=== PATIENT | male | born 1975 | race Caucasian/White ===

== ENCOUNTER 2023-12-02 15:18 | Inpatient (IN) | payer OTHER ==
[2023-12-02] MEDS ORDERED: Pantoprazole 40 MG VIAL ONE (16:29)
[2023-12-02] MEDS ORDERED: Octreotide Acetate 500 MCG/ML VIAL ONE ×3 (16:29→17:37)
[2023-12-02] MEDS ORDERED: Ondansetron PF 4 MG/2 ML Vial ONE (16:29)
[2023-12-02] MEDS ORDERED: Prochlorperazine 10 MG/2 ML VIAL ONE (16:40)
[2023-12-02 17:08] LABS: #Basophils 0.05 10x3/uL (0.0-0.2); #Eosinphils Less than 0.03 10x3/uL (0.0-0.7); %Basophils 0.4 % (0.0-1.0); %Eosinophils 0.2 % (0.0-10.0); %Monocytes 6.9 % (0.0-10.0); %Neutrophils 77.8 % (42.0-75.0); Hematocrit 36.3 % (42.0-52.0); Hemoglobin 12.1 g/dL (14.0-18.0); Mean Corpuscular HGB CONC 33.3 g/dL (32.0-36.0); Mean Corpuscular Hemoglobin 29.8 pg (27.0-31.0); Mean Corpuscular Volume 89.4 fL (78.0-98.0); Mean Platelet Volume 10.7 fL (7.4-10.4); Platelet Count 214 10x3/uL (130-400); Red Blood Cell (RBC) Count 4.06 mill/uL (4.70-6.10)
[2023-12-02 17:22] LABS: INR-International Normal Ratio 1.3; PTT 26.6 sec (22.9-36.1); Prothrombin Time 15.8 sec (12.0-14.7)
[2023-12-02 17:27] LABS: ALT (SGPT) 23 U/L (8-55); AST (SGOT) 22 U/L (5-34); Albumin 3.4 g/dL (3.5-5.0); Alkaline Phosphatase 50 U/L (40-110); Anion Gap 17 mmol/L (10-20); BUN (Urea Nitrogen) 22 mg/dL (8.9-20.6); Bilirubin, Total 0.9 mg/dL (0.2-1.2); Calc. Creatinine Clearance 0 mL/min (70-130); Calcium 8.6 mg/dL (7.8-10.44); Carbon Dioxide 20 mmol/L (22-29); Chloride 103 mmol/L (98-107); Estimated GFR 99; Globulin 4.1 g/dL (2.4-3.5); Glucose 346 mg/dL (70-105); Lipase 18 U/L (8-78); Potassium 4.5 mmol/L (3.5-5.1); Protein, Total 7.5 g/dL (6.0-8.3); Sodium 135 mmol/L (136-145)
[2023-12-02 17:28] LABS: Troponin I Less than 0.010 ng/mL (< 0.028)
[2023-12-02] MEDS ORDERED: Acetaminophen 325 MG TAB PO PRN (17:52)
[2023-12-02] MEDS ORDERED: Pantoprazole 80 MG in Sodium Chloride 0.9% 100 ML IVP SCH (18:00)
[2023-12-02] MEDS ORDERED: cefTRIAXone\\ROCEPHIN 1 GM in Sodium Chloride 0.9% 100 ML IVPB SCH (18:00)
[2023-12-02] MEDS ORDERED: Octreotide Acetate 1,250 MCG in Sodium Chloride 0.9% 250 ML 250 ML IVPB SCH (18:00)
[2023-12-02] MEDS ORDERED: Dextrose 5% in Water 1,000 ML IV PRN (18:06)
[2023-12-02] MEDS ORDERED: Glucagon 1 MG/ML KIT IM PRN (18:06)
[2023-12-02] MEDS ORDERED: Dextrose 50% Abboject 50 ML SYRINGE SLOW IVP PRN (18:06)
[2023-12-02 18:28] LABS: Bacteria/HPF None Seen HPF (None Seen); Bilirubin Negative (Negative); Blood, Urine Negative (Negative); CAUTI Indications for Culture Immunosuppressed; Clarity Clear (Clear); Glucose, Urine (Dipstick) Greater than 1000 mg/dL (Negative); Ketone, Urine 40 mg/dL (Negative); Leukocyte Negative Leu/uL (Negative); Nitrite Negative (Negative); Protein, Urine (Dipstick) Negative (Neg-Trace); RBC/HPF 0-3 HPF (0-3); Specific Gravity, Urine 1.025 (1.002-1.036); Squamous Epithelial None Seen HPF (0-3); Urobilinogen Normal mg/dL (Less than 2); WBC/HPF 0-3 HPF (0-3); pH, Urine 6.5 (5.0-9.0)
[2023-12-02 18:30] LABS: Urine Culture Reflex Yes Yes
[2023-12-02] MEDS ORDERED: SUCCINYLCHOLINE/SOD CL,ISO/PF 200 MG/10 ML SYRINGE FS ONE (18:42)
[2023-12-02] MEDS ORDERED: PROPOFOL 60 ML ONE (18:42)
[2023-12-02] MEDS ORDERED: Etomidate 40 MG (20 mL) VIAL ONE (18:46)
[2023-12-02] MEDS ORDERED: Midazolam HCl 2 mg/2 ml Vial ONE (18:46)
[2023-12-02] MEDS ORDERED: SUGAMMADEX SODIUM 200 MG/2 ML VIAL ONE (19:06)
[2023-12-02 21:19] VITALS: BMI 49.9
[2023-12-02] MEDS: Pantoprazole 40 MG VIAL IVP SCH (23:29)
[2023-12-02] MEDS: Sodium Chloride 0.9% 1,000 ML IV SCH (23:29)
[2023-12-02] MEDS: cefTRIAXone\\ROCEPHIN 2 GM in Sodium Chloride 0.9% 100 ML IVPB SCH (23:50)
[2023-12-02] MEDS: Insulin Regular, Human 100 UNIT/ML 10 ML VIAL SC PRN (23:51)
[2023-12-03] MEDS ORDERED: Glucagon 1 MG/ML KIT IM PRN (06:09)
[2023-12-03] MEDS ORDERED: Dextrose 50% Abboject 50 ML SYRINGE SLOW IVP PRN (06:09)
[2023-12-03] MEDS ORDERED: Dextrose 5% in Water 1,000 ML IV PRN (06:09)
[2023-12-03] MEDS: HumaLOG 300 UNITS/3 ML VIAL SC PRN (06:18)
[2023-12-03 09:14] LABS: #Basophils Less than 0.03 10x3/uL (0.0-0.2); %Basophils 0.3 % (0.0-1.0); %Eosinophils 1.3 % (0.0-10.0); %Lymphocytes 24.9 % (21.0-51.0); %Monocytes 12.9 % (0.0-10.0); %Neutrophils 60.2 % (42.0-75.0); Hematocrit 27.5 % (42.0-52.0); Hemoglobin 9.2 g/dL (14.0-18.0); Mean Corpuscular HGB CONC 33.5 g/dL (32.0-36.0); Mean Corpuscular Hemoglobin 30.1 pg (27.0-31.0); Mean Corpuscular Volume 89.9 fL (78.0-98.0); Platelet Count 128 10x3/uL (130-400); RBC Distribution Width 13.2 % (11.5-14.5); Red Blood Cell (RBC) Count 3.06 mill/uL (4.70-6.10)
[2023-12-03 09:28] LABS: INR-International Normal Ratio 1.3; Prothrombin Time 16.4 sec (12.0-14.7)
[2023-12-03 09:32] LABS: ALT (SGPT) 20 U/L (8-55); AST (SGOT) 25 U/L (5-34); Albumin 2.8 g/dL (3.5-5.0); Alkaline Phosphatase 41 U/L (40-110); Anion Gap 13 mmol/L (10-20); BUN (Urea Nitrogen) 17 mg/dL (8.9-20.6); Bilirubin, Total 0.4 mg/dL (0.2-1.2); Calc. Creatinine Clearance 253 mL/min (70-130); Calcium 7.8 mg/dL (7.8-10.44); Carbon Dioxide 18 mmol/L (22-29); Chloride 107 mmol/L (98-107); Estimated GFR 108; Globulin 3.4 g/dL (2.4-3.5); Glucose 382 mg/dL (70-105); Potassium 3.8 mmol/L (3.5-5.1); Protein, Total 6.2 g/dL (6.0-8.3); Sodium 134 mmol/L (136-145)
[2023-12-03] MEDS: Pantoprazole 40 MG VIAL IVP SCH (09:35)
[2023-12-03] MEDS: glipiZIDE 10 MG TAB PO SCH ×2 (11:38→20:47)
[2023-12-03] MEDS: metFORMIN 500 MG TAB PO SCH ×2 (11:38→20:47)
[2023-12-03 14:10] LABS: Hematocrit 30.4 % (42.0-52.0); Hemoglobin 9.4 g/dL (14.0-18.0)
[2023-12-03] MEDS: Lactated Ringer's 1,000 ML IV SCH (17:55)
[2023-12-03] MEDS: Insulin Glargine 30 UNITS/0.3 ML VIAL SC SCH (20:47)
[2023-12-03] MEDS: Atorvastatin Calcium 20 MG TAB PO SCH (20:48)
[2023-12-04] MEDS: Ondansetron PF 4 MG/2 ML Vial IVP PRN (00:58)
[2023-12-04 02:12] LABS: Hematocrit 23.6 % (42.0-52.0); Hemoglobin 7.5 g/dL (14.0-18.0); Mean Corpuscular HGB CONC 31.8 g/dL (32.0-36.0); Mean Corpuscular Hemoglobin 29.8 pg (27.0-31.0); Mean Corpuscular Volume 93.7 fL (78.0-98.0); Mean Platelet Volume 10.4 fL (7.4-10.4); Platelet Count 194 10x3/uL (130-400); RBC Distribution Width 13.5 % (11.5-14.5); Red Blood Cell (RBC) Count 2.52 mill/uL (4.70-6.10)
[2023-12-04 02:37] LABS: Anisocytosis SLIGHT = 6-15 cells HPF (0-5); Band 2 % (5-11); Eosinophils 1 % (0-10); Lymphocytes 14 % (21-51); Macrocytosis SLIGHT = 6-15 cells HPF (0-5); Monocytes 4 % (0-10); Neutrophil 79 % (42-75); Ovalocytes SLIGHT = 2-5 cells HPF (0-1); Platelet Adequacy Comment Platelets Normal; Polychromasia MODERATE = 3-4 cells HPF (0-2)
[2023-12-04] MEDS: Ondansetron PF 4 MG/2 ML Vial IVP SCH (02:52)
[2023-12-04 03:36] VITALS: BP 104/51
[2023-12-04] MEDS: Pantoprazole 80 MG, Admixture Fee 1 EACH in Sodium Chloride 0.9% 100 ML IVPB SCH (03:46)
[2023-12-04] MEDS: Pantoprazole 40 MG VIAL IVP SCH (04:26)
[2023-12-04] MEDS ORDERED: PROPOFOL 20 ML ONE (07:08)
[2023-12-04 07:24] LABS: #Basophils 0.06 10x3/uL (0.0-0.2); #Eosinphils Less than 0.03 10x3/uL (0.0-0.7); %Basophils 0.3 % (0.0-1.0); %Eosinophils 0.1 % (0.0-10.0); %Lymphocytes 15.1 % (21.0-51.0); %Monocytes 11.1 % (0.0-10.0); %Neutrophils 72.3 % (42.0-75.0); Hematocrit 27.9 % (42.0-52.0); Mean Corpuscular HGB CONC 32.3 g/dL (32.0-36.0); Mean Corpuscular Hemoglobin 29.9 pg (27.0-31.0); Mean Corpuscular Volume 92.7 fL (78.0-98.0); Platelet Count 191 10x3/uL (130-400); RBC Distribution Width 13.4 % (11.5-14.5); Red Blood Cell (RBC) Count 3.01 mill/uL (4.70-6.10)
[2023-12-04 07:59] LABS: ALT (SGPT) 20 U/L (8-55); AST (SGOT) 26 U/L (5-34); Albumin 2.6 g/dL (3.5-5.0); Alkaline Phosphatase 40 U/L (40-110); Anion Gap 17 mmol/L (10-20); BUN (Urea Nitrogen) 20 mg/dL (8.9-20.6); Bilirubin, Total 1.1 mg/dL (0.2-1.2); Calc. Creatinine Clearance 260 mL/min (70-130); Calcium 7.7 mg/dL (7.8-10.44); Carbon Dioxide 16 mmol/L (22-29); Chloride 105 mmol/L (98-107); Estimated GFR 109; Globulin 2.9 g/dL (2.4-3.5); Glucose 376 mg/dL (70-105); Potassium 4.3 mmol/L (3.5-5.1); Protein, Total 5.5 g/dL (6.0-8.3); Sodium 134 mmol/L (136-145)
[2023-12-04] MEDS ORDERED: fentaNYL PF 100 MCG/2 ML SYRINGE ONE (08:05)
[2023-12-04] MEDS ORDERED: Calcium Chloride 1 GM/10 ML Abboject SYRINGE ONE ×2 (08:22→08:51)
[2023-12-04] MEDS ORDERED: Ondansetron PF 4 MG/2 ML Vial ONE (08:33)
[2023-12-04] MEDS ORDERED: SUCCINYLCHOLINE/SOD CL,ISO/PF 200 MG/10 ML SYRINGE FS ONE (08:33)
[2023-12-04] MEDS ORDERED: Dexamethasone 4 mg/ml Vial ONE (08:33)
[2023-12-04] MEDS ORDERED: PHENYLEPHRINE-NS 100 MCG/ML 10 ML SYRINGE ONE (08:33)
[2023-12-04] MEDS ORDERED: Lidocaine 1% PF 5 ML VIAL ONE (08:33)
[2023-12-04] MEDS ORDERED: Phenylephrine 10 MG/ML VIAL ONE (08:34)
[2023-12-04] MEDS ORDERED: SUGAMMADEX SODIUM 200 MG/2 ML VIAL ONE (08:36)
[2023-12-04] MEDS: Lorazepam 2 MG/ML VIAL ONE ×2 (09:10→09:40)
[2023-12-04 09:39] LABS: Actual Bicarbonate (HCO3a) 17.2 mEq/L (22-28); CO2 Tension 38.4 mmHg (35.0-45.0); Calcium, Ionized (arterial) 1.24 mmol/L (1.12-1.30); Carboxyhemoglobin (COHb) 0.4 gm% (0.0-3.0); Hematocrit-ABG 31 % (42.0-52.0); Hemoglobin (Hb) 10.7 g/dL (14.0-18.0); O2 Tension (PaO2), arterial 110.6 mmHg (80.0-100.0)
[2023-12-04] MEDS: Octreotide Acetate 100 MCG/ML VIAL SLOW IVP SCH (09:39)
[2023-12-04 09:40] LABS: Puncture Site LRA
[2023-12-04] MEDS: Octreotide Acetate 1,250 MCG in Sodium Chloride 0.9% 250 ML 250 ML IVPB SCH (09:40)
[2023-12-04] MEDS: Fentanyl CADD 100 ML ONE (09:41)
[2023-12-04] MEDS: Propofol 1,000 MG/100 ML VIAL IV ONE (09:41)
[2023-12-04] MEDS ORDERED: Vecuronium 10 MG VIAL IVP PRN (09:42)
[2023-12-04] MEDS ORDERED: Ventilator Sedation Protocol 1 EACH FS SCH (09:45)
[2023-12-04] MEDS ORDERED: Propofol BOLUS 1,000 MG/100 ML VIAL IV PRN (10:00)
[2023-12-04] MEDS ORDERED: Morphine 2 MG/ML VIAL SLOW IVP PRN (10:00)
[2023-12-04] MEDS ORDERED: Propofol 1,000 MG/100 ML VIAL IV PRN (10:00)
[2023-12-04] MEDS ORDERED: Fentanyl BOLUS 250 ML IVPB PRN (10:00)
[2023-12-04] MEDS ORDERED: Fentanyl CADD 100 ML IV SCH (10:00)
[2023-12-04] MEDS ORDERED: Lorazepam 2 MG/ML VIAL ONE ×2 (10:24→11:20)
[2023-12-04] MEDS: Lorazepam 2 MG/ML VIAL SLOW IVP PRN (10:26)
[2023-12-04] MEDS ORDERED: Propofol 1,000 MG/100 ML VIAL IV ONE (10:53)
[2023-12-04] MEDS ORDERED: Sodium Chloride 0.9% 1,000 ML IV SCH (11:30)
[2023-12-04 11:46] VITALS: TEMP 98.3
[2023-12-04 11:49] LABS: Hematocrit 31.8 % (42.0-52.0); Hemoglobin 10.8 g/dL (14.0-18.0); Platelet Count 153 10x3/uL (130-400)
[2023-12-05 11:47] LABS: Actual Bicarbonate (HCO3a) 22.5 mEq/L (22-28); Analyzer IN Cardio OR; Base Excess (BEa) -5.2 mEq/L (-2.0 to +3.0); Calcium, Ionized (arterial) 1.08 mmol/L (1.12-1.30); Carboxyhemoglobin (COHb) 0.6 gm% (0.0-3.0); Hematocrit-ABG 36 % (42.0-52.0); Hemoglobin (Hb) 12.2 g/dL (14.0-18.0); O2 Tension (PaO2), arterial 104.5 mmHg (80.0-100.0); Potassium - ABG Lab 4.57 mmol/L (3.70-5.30); Puncture Site Arterial Line; pH, Arterial 7.245 (7.35-7.45)
== END 2023-12-04 12:40 | disposition short-term general hospital (02) | DRG 299 ==
LOC: EEVIPCON 15:18 → ERS 15:18 → SUATTDRO 15:18 → CCU 18:47 → SDC/OP 18:48 → 2NO 21:09 → CCU 12-04 03:22
PROVIDERS: ADMIT Internal Medicine; ATTEND Internal Medicine
PROC: 0DJ08ZZ Inspection of Upper Intestinal Tract, Via Natural or Artificial Opening Endoscopic (ICD-10-PCS; principal; 2023-12-02)
PROC: 0W3P8ZZ Control Bleeding in Gastrointestinal Tract, Via Natural or Artificial Opening Endoscopic (ICD-10-PCS; 2023-12-04)
DX: I86.4 Gastric varices (principal); K22.6 Gastro-esophageal laceration-hemorrhage syndrome; D62 Acute posthemorrhagic anemia; Z68.42 Body mass index [BMI] 45.0-49.9, adult; I85.10 Secondary esophageal varices without bleeding; K74.60 Unspecified cirrhosis of liver; B18.2 Chronic viral hepatitis C; I25.10 Atherosclerotic heart disease of native coronary artery without angina pectoris; I10 Essential (primary) hypertension; E66.01 Morbid (severe) obesity due to excess calories; E11.9 Type 2 diabetes mellitus without complications; E78.5 Hyperlipidemia, unspecified; Z90.49 Acquired absence of other specified parts of digestive tract; Z98.890 Other specified postprocedural states; Z79.82 Long term (current) use of aspirin; Z79.84 Long term (current) use of oral hypoglycemic drugs; Z79.899 Other long term (current) drug therapy
CPT/HCPCS: 36415; 36416; 36430; 36600; 71045; 80053; 81001; 82805; 83690; 84484; 85025; 85610; 85730; 86850; 86900; 86901; 87086; 93005; 94002; 96365; 96366; 96375; C9113; J0696; J0780; J1100; J1364; J1815; J2060; J2250; J2354; J2371; J2405; J2704; J3010; J3490; J7050; J7120; P9016